=== PATIENT | male | born 1975 | race African-American/Black ===

== ENCOUNTER → 2016-11-02 | Outpatient (CLI) | payer OTHER ==
[~2016-11-02] MED LIST: GASTROGRAFIN SOLUTION 30ML (Q9963) As Ordered ONE; ISOVUE-370 76% 100ML VIAL (Q9967) As Ordered ONE
--- NOTE | 2016-11-03 04:25 | REP ---
Clinical: Abdominal pain. Technique: Axial contrast enhanced images from the lung bases to the pubic symphysis using oral and 100 ml Isovue 370 intravenous contrast material with precontrast images of the abdomen as well as coronal and sagittal re-formations. Findings: Lung bases are relatively clear. Visualized portions of the heart and pericardium are normal. Liver, spleen, pancreas, gallbladder, bilateral adrenal glands and kidneys are essentially normal. Incidental note is made of a 1 mm nonobstructing left intrarenal calculus as well as small left renal hypodensity suggesting cysts measuring up to 1.1 cm diameter. The enteric system is without obstruction or acute inflammatory process and a normal terminal ileum and appendix are identified in the right lower quadrant. Scattered colonic and sigmoid diverticula noted without acute diverticulitis. Pelvis demonstrates normal bladder and age appropriate prostate/seminal vesicles. No pelvic fluid or ascites. No intraperitoneal or retroperitoneal adenopathy. No free air. Abdominal aorta without aneurysm or dissection. Musculoskeletal structures are intact and without focal osseous abnormality. Impression: 1. A 1 mm nonobstructing left intrarenal calculus and small presumed left renal cyst 1.1 cm maximal diameter. 2. Colonic diverticula without acute diverticulitis. 3. No further acute intra-abdominal or pelvic pathology appreciated. Signed by Aleksandar Reynoso MD 11/03/2016 04:17 A
== END | disposition home or self-care (01) ==
LOC: M RAD 14:59
PROVIDERS: ATTEND Physician Assistant
DX: R14.2 Eructation (principal); R10.11 Right upper quadrant pain; N20.0 Calculus of kidney; N28.1 Cyst of kidney, acquired; K57.90 Diverticulosis of intestine, part unspecified, without perforation or abscess without bleeding
CPT/HCPCS: 74178; Q9963; Q9967

== ENCOUNTER → 2017-05-29 | Outpatient (CLI) | payer OTHER ==
[~2017-05-29] MED LIST changes: +ALLO15TA; +AMLO5TAB2; +ATOR1TAB21; +BOTO200I; +CLAR10CA3 PO; +DYAZ37.5 PO; -GASTROGRAFIN SOLUTION 30ML (Q9963) As Ordered ONE; +HYOS125TA; +IBUP80TA PO; -ISOVUE-370 76% 100ML VIAL (Q9967) As Ordered ONE; +OMEP20CA3; +ONDA4TAB6; +PERC5TAB12 PO; +RANI150T; +REFR0.1D; +REST0.05; +SUMA100T2; +TESS100C PO; +TIZANIDINE; +TRIAMT/HCTZ; +ZONI100C2
[2017-05-29 11:21] LABS: BASO % 0.6 % (0.0-1.0); EOS % 1.3 % (0.0-3.0); LARGE UNSTAINED CELL # 0.1 K/mm3 (0.0-0.4); LARGE UNSTAINED CELL % 2.4 % (0.0-4.0); LYMPH # 1.3 K/mm3 (1.5-4.5); LYMPH % 31.6 % (24.0-44.0); MEAN CORPUSCULAR HEMOGLOBIN 27.4 pg (27.0-33.0); MEAN CORPUSCULAR HGB CONC 34.3 g/dl (32.0-36.5); MEAN CORPUSCULAR VOLUME 80.1 fl (80.0-96.0); MONO # 0.2 K/mm3 (0.0-0.8); MONO % 5.9 % (0.0-5.0); NEUTROPHILS # 2.3 K/mm3 (1.8-7.7); NEUTROPHILS % 58.2 % (36.0-66.0); PLATELET COUNT, AUTOMATED 258 k/mm3 (150-450); RED CELL DISTRIBUTION WIDTH 13.9 % (11.5-14.5)
[2017-05-29 11:52] LABS: ALBUMIN 4.1 GM/DL (3.2-5.2); ALBUMIN/GLOBULIN RATIO 1.37 (1.00-1.93); ALKALINE PHOSPHATASE 52 U/L (45-117); ALT/SGPT 115 U/L (12-78); ANION GAP 6 MEQ/L (8-16); AST/SGOT 84 U/L (15-37); BILIRUBIN,TOTAL 0.6 MG/DL (0.2-1.0); BLOOD UREA NITROGEN 13 MG/DL (7-18); CALCIUM LEVEL 8.9 MG/DL (8.5-10.1); CARBON DIOXIDE LEVEL 30 MEQ/L (21-32); CHLORIDE LEVEL 107 MEQ/L (98-107); CHOLESTEROL LEVEL 222 MG/DL (<200); CREATININE FOR GFR 1.13 MG/DL (0.70-1.30); GLOMERULAR FILTRATION RATE > 60.0 (>60); GLUCOSE, FASTING 93 MG/DL (70-105); POTASSIUM SERUM 4.1 MEQ/L (3.5-5.1); SODIUM LEVEL 143 MEQ/L (136-145); TOTAL PROTEIN 7.1 GM/DL (6.4-8.2); TRIGLYCERIDES LEVEL 123 MG/DL (<150); URIC ACID 4.9 MG/DL (3.5-7.2)
== END ==
LOC: M LAB 10:06
PROVIDERS: ATTEND Emergency Medicine
DX: I10 Essential (primary) hypertension (principal); E78.2 Mixed hyperlipidemia; E55.9 Vitamin D deficiency, unspecified; M10.9 Gout, unspecified; R53.83 Other fatigue

== ENCOUNTER 2017-07-01 17:24 | Emergency (ER) | payer OTHER ==
[~2017-07-01] VITALS: Ht 175.3 cm; Wt 127.3 kg
[2017-07-01] MEDS ORDERED: ONDA4TAB6 (18:03)
[2017-07-01] MEDS ORDERED: HYOS125TA (18:03)
[2017-07-01] MEDS ORDERED: REFR0.1D (18:03)
[2017-07-01] MEDS ORDERED: ZONI100C2 (18:03)
[2017-07-01] MEDS ORDERED: TIZANIDINE (18:03)
[2017-07-01] MEDS ORDERED: DYAZ37.5 PO (18:03)
[2017-07-01] MEDS ORDERED: REST0.05 (18:03)
[2017-07-01] MEDS ORDERED: AMLO5TAB2 (18:03)
[2017-07-01] MEDS ORDERED: ALLO15TA (18:03)
[2017-07-01] MEDS ORDERED: CLAR10CA3 PO (18:03)
[2017-07-01] MEDS ORDERED: SUMA100T2 (18:03)
[2017-07-01] MEDS ORDERED: TRIAMT/HCTZ (18:03)
[2017-07-01] MEDS ORDERED: RANI150T (18:03)
[2017-07-01] MEDS ORDERED: ATOR1TAB21 (18:03)
[2017-07-01] MEDS ORDERED: BOTO200I (18:03)
[2017-07-01] MEDS ORDERED: OMEP20CA3 (18:03)
[2017-07-01] MEDS ORDERED: MORPHINE 2 MG/ML 1ML SYRINGE IV ONE (20:15)
[2017-07-01 20:42] LABS: BASO % 0.5 % (0.0-1.0); EOS # 0.2 K/mm3 (0.0-0.50); EOS % 2.3 % (0.0-3.0); LARGE UNSTAINED CELL # 0.2 K/mm3 (0.0-0.4); LARGE UNSTAINED CELL % 2.4 % (0.0-4.0); LYMPH # 1.5 K/mm3 (1.5-4.5); LYMPH % 21.7 % (24.0-44.0); MEAN CORPUSCULAR HEMOGLOBIN 27.3 pg (27.0-33.0); MEAN CORPUSCULAR HGB CONC 34.4 g/dl (32.0-36.5); MEAN CORPUSCULAR VOLUME 79.5 fl (80.0-96.0); MONO # 0.3 K/mm3 (0.0-0.8); MONO % 4.7 % (0.0-5.0); NEUTROPHILS # 4.7 K/mm3 (1.8-7.7); NEUTROPHILS % 68.4 % (36.0-66.0); PLATELET COUNT, AUTOMATED 246 k/mm3 (150-450); WHITE BLOOD COUNT 6.8 K/mm3 (4.0-10.0)
[2017-07-01 21:02] LABS: ALBUMIN 4.1 GM/DL (3.2-5.2); ALBUMIN/GLOBULIN RATIO 1.28 (1.00-1.93); ALKALINE PHOSPHATASE 66 U/L (45-117); ALT/SGPT 114 U/L (12-78); ANION GAP 8 MEQ/L (8-16); AST/SGOT 72 U/L (15-37); BILIRUBIN,DIRECT < 0.1 MG/DL (0.0-0.2); BILIRUBIN,TOTAL 0.4 MG/DL (0.2-1.0); BLOOD UREA NITROGEN 11 MG/DL (7-18); CALCIUM LEVEL 8.9 MG/DL (8.5-10.1); CARBON DIOXIDE LEVEL 29 MEQ/L (21-32); CHLORIDE LEVEL 106 MEQ/L (98-107); CREATININE FOR GFR 1.16 MG/DL (0.70-1.30); GLOMERULAR FILTRATION RATE > 60.0 (>60); GLUCOSE, FASTING 87 MG/DL (70-105); SODIUM LEVEL 143 MEQ/L (136-145); TOTAL PROTEIN 7.3 GM/DL (6.4-8.2)
--- NOTE | 2017-07-01 21:30 | REPUSA ---
Clinical history: Right upper quadrant pain. Findings: The pancreas is limited in visualization secondary to overlying bowel gas, but appears mery sly unremarkable. The liver demonstrates increased echotexture and echogenicity, with no mass lesions . The gallbladder is unremarkable. The common bile duct measures 4 mm and is within normal limits. Th e right kidney measures 12.1 centimeters in length and is unremarkable. There is no ascites. Impression: Fatty infiltration of the liver. No other acute findings.
[2017-07-01] MEDS ORDERED: BENZONATATE 100 MG CAP PO ONE (22:00)
[2017-07-01] MEDS ORDERED: IBUPROFEN 800 MG TAB PO ONE (22:00)
[2017-07-01] MEDS ORDERED: PERCOCET 5MG/325MG TAB PO ONE (22:00)
[2017-07-01] MEDS ORDERED: TESS100C PO (22:03)
[2017-07-01] MEDS ORDERED: IBUP80TA PO (22:03)
[2017-07-01] MEDS ORDERED: PERC5TAB12 PO (22:03)
[2017-07-01 22:18] VITALS: BP 136/70
== END 2017-07-01 22:17 | disposition home or self-care (01) ==
LOC: M ED 17:24
DX: M94.0 Chondrocostal junction syndrome [Tietze] (principal); R10.9 Unspecified abdominal pain; R05 Cough; I10 Essential (primary) hypertension; Z79.899 Other long term (current) drug therapy

== ENCOUNTER → 2017-09-24 | Outpatient (REF) | payer OTHER | LOC: M SFHCLERA 10:04 | PROVIDERS: ATTEND Nurse Practitioner Family | DX: J02.9 Acute pharyngitis, unspecified (principal) ==

== ENCOUNTER → 2018-03-31 | Outpatient (CLI) | payer OTHER ==
[2018-03-31 11:34] LABS: ESTIMATED AVERAGE GLUCOSE 131 MG/DL (60-110); HEMOGLOBIN A1c 6.2 %
[2018-03-31 11:47] LABS: ALBUMIN 4.4 GM/DL (3.2-5.2); ALBUMIN/GLOBULIN RATIO 1.29 (1.00-1.93); ALKALINE PHOSPHATASE 63 U/L (45-117); ALT/SGPT 90 U/L (12-78); ANION GAP 8 MEQ/L (8-16); AST/SGOT 78 U/L (7-37); BILIRUBIN,TOTAL 0.8 MG/DL (0.2-1.0); BLOOD UREA NITROGEN 14 MG/DL (7-18); CALCIUM LEVEL 9.1 MG/DL (8.5-10.1); CARBON DIOXIDE LEVEL 29 MEQ/L (21-32); CHLORIDE LEVEL 107 MEQ/L (98-107); CREATININE FOR GFR 1.15 MG/DL (0.70-1.30); GLOMERULAR FILTRATION RATE > 60.0 (>60); GLUCOSE, FASTING 88 MG/DL (70-100); LIPASE 316 U/L (73-393); MAGNESIUM LEVEL 2.2 MG/DL (1.8-2.4); PSA SCREENING 0.88 NG/ML (< 4.0); SODIUM LEVEL 144 MEQ/L (136-145); THYROID STIMULATING HORMONE 0.308 uIU/ML (0.358-3.740); TOTAL PROTEIN 7.8 GM/DL (6.4-8.2); URIC ACID 5.5 MG/DL (3.5-7.2)
[2018-03-31 12:05] LABS: TOTAL 25(OH) VITAMIN D 64.4 NG/ML (30.0-100.0); VITAMIN B12 LEVEL 598 PG/ML
[2018-03-31 14:48] LABS: BASO % 0.3 % (0.0-1.0); EOS # 0.1 10^3/uL (0.0-0.50); EOS % 1.7 % (0.0-3.0); HEMATOCRIT 50.1 % (42.0-52.0); HEMOGLOBIN 16.7 g/dl (13.5-17.5); LYMPH # 1.1 10^3/uL (1.5-4.5); MEAN CORPUSCULAR HGB CONC 33.3 g/dl (32.0-36.5); MONO # 0.2 10^3/uL (0.0-0.8); MONO % 6.5 % (0.0-5.0); NEUTROPHILS # 2.1 10^3/uL (1.8-7.7); NEUTROPHILS % 59.5 % (36.0-66.0); PLATELET COUNT, AUTOMATED 230 10^3/uL (150-450); RED BLOOD COUNT 6.42 10^6/uL (4.30-6.10); RED CELL DISTRIBUTION WIDTH 14.6 % (11.5-14.5); WHITE BLOOD COUNT 3.5 10^3/uL (4.0-10.0)
== END ==
LOC: M LAB 09:55
DX: R20.2 Paresthesia of skin (principal)
CPT/HCPCS: 72110

== ENCOUNTER → 2018-07-15 | Outpatient (CLI) | payer OTHER ==
[2018-07-15 09:28] LABS: THYROID STIMULATING HORMONE 0.513 uIU/ML (0.358-3.740)
[2018-07-17 11:22] LABS: THYROID PEROXIDASE ANTIBODY < 28.0 U/ML (<60.0)
[2018-07-18 00:06] LABS: THYROID STIMULATING IMMUNOGLOB <0.10 IU/L (0.00-0.55)
== END ==
LOC: M LAB 07:32
DX: E05.90 Thyrotoxicosis, unspecified without thyrotoxic crisis or storm (principal)
CPT/HCPCS: 84443

== ENCOUNTER → 2018-11-07 | Outpatient (REF) | payer OTHER ==
[~2018-11-07] MED LIST changes: -AMLO5TAB2; +AMLO5TAB6
[2018-11-07 15:28] LABS: HEMOGLOBIN A1c 6.7 %
[2018-11-07 15:30] LABS: ALBUMIN 4.8 GM/DL (3.2-5.2); ALT/SGPT 88 U/L (12-78); BILIRUBIN,TOTAL 0.8 MG/DL (0.2-1.0); BLOOD UREA NITROGEN 13 MG/DL (7-18); CALCIUM LEVEL 9.4 MG/DL (8.5-10.1); CARBON DIOXIDE LEVEL 27 MEQ/L (21-32); CHLORIDE LEVEL 103 MEQ/L (98-107); CHOLESTEROL LEVEL 185 MG/DL (<200); CHOLESTEROL RISK RATIO 4.404 (<5); GLOMERULAR FILTRATION RATE > 60.0 (>60); GLUCOSE, FASTING 78 MG/DL (70-100); HDL CHOLESTEROL 42 MG/DL (>40); LDL CHOLESTEROL 125 MG/DL (<100); NON-HDL-C 143 MG/DL; POTASSIUM SERUM 4.4 MEQ/L (3.5-5.1); SODIUM LEVEL 138 MEQ/L (136-145); TOTAL PROTEIN 7.9 GM/DL (6.4-8.2); TRIGLYCERIDES LEVEL 89 MG/DL (<150)
== END ==
LOC: M LABNEURO 13:21
PROVIDERS: ATTEND Physician Assistant Medical
DX: I10 Essential (primary) hypertension (principal); R94.5 Abnormal results of liver function studies; E78.2 Mixed hyperlipidemia; R73.01 Impaired fasting glucose

== ENCOUNTER → 2019-05-25 | Outpatient (CLI) | payer OTHER ==
[~2019-05-25] MED LIST changes: -ALLO15TA; +ALLO300T2; -OMEP20CA3; +OMEP20CA4
[2019-05-25 20:27] LABS: ALBUMIN 4.2 GM/DL (3.2-5.2); ALT/SGPT 92 U/L (12-78); BILIRUBIN,TOTAL 0.6 MG/DL (0.2-1.0); BLOOD UREA NITROGEN 14 MG/DL (7-18); CALCIUM LEVEL 9.8 MG/DL (8.5-10.1); CARBON DIOXIDE LEVEL 29 MEQ/L (21-32); CHLORIDE LEVEL 105 MEQ/L (98-107); CHOLESTEROL LEVEL 193 MG/DL (<200); CHOLESTEROL RISK RATIO 3.509 (<5); CREATININE FOR GFR 1.17 MG/DL (0.70-1.30); GLOMERULAR FILTRATION RATE > 60.0 (>60); GLUCOSE, FASTING 86 MG/DL (70-100); HDL CHOLESTEROL 55 MG/DL (>40); LDL CHOLESTEROL 119 MG/DL (<100); NON-HDL-C 138 MG/DL; POTASSIUM SERUM 4.4 MEQ/L (3.5-5.1); SODIUM LEVEL 142 MEQ/L (136-145); TOTAL PROTEIN 7.5 GM/DL (6.4-8.2); TRIGLYCERIDES LEVEL 94 MG/DL (<150)
== END ==
LOC: M WUC 16:39
PROVIDERS: ATTEND Physician Assistant
DX: E78.2 Mixed hyperlipidemia (principal)

== ENCOUNTER → 2020-03-27 | Outpatient (REF) | payer OTHER ==
[~2020-03-27] MED LIST changes: +OMEP1CAP73; -OMEP20CA4; +ZONI100C17; -ZONI100C2
[2020-03-27 17:38] LABS: HEMOGLOBIN A1c 7.1 %
[2020-03-27 17:47] LABS: ALBUMIN 4.7 GM/DL (3.2-5.2); ALT/SGPT 80 U/L (12-78); BILIRUBIN,TOTAL 0.8 MG/DL (0.2-1.0); BLOOD UREA NITROGEN 12 MG/DL (7-18); CALCIUM LEVEL 9.7 MG/DL (8.5-10.1); CARBON DIOXIDE LEVEL 28 MEQ/L (21-32); CHLORIDE LEVEL 102 MEQ/L (98-107); CHOLESTEROL LEVEL 203 MG/DL (<200); CREATININE FOR GFR 1.07 MG/DL (0.70-1.30); GLOMERULAR FILTRATION RATE > 60.0 (>60); GLUCOSE, FASTING 97 MG/DL (70-100); HDL CHOLESTEROL 51 MG/DL (>40); LDL CHOLESTEROL 129 MG/DL (<100); NON-HDL-C 152 MG/DL; POTASSIUM SERUM 4.1 MEQ/L (3.5-5.1); SODIUM LEVEL 136 MEQ/L (136-145); TOTAL PROTEIN 7.8 GM/DL (6.4-8.2); TRIGLYCERIDES LEVEL 114 MG/DL (<150); URIC ACID 5.5 MG/DL (3.5-7.2)
== END ==
LOC: M LABDRWAD 16:08
PROVIDERS: ATTEND Physician Assistant
DX: E78.2 Mixed hyperlipidemia (principal); E55.9 Vitamin D deficiency, unspecified; M10.9 Gout, unspecified; E11.9 Type 2 diabetes mellitus without complications

== ENCOUNTER → 2020-08-22 | Outpatient (CLI) | payer OTHER ==
[~2020-08-22] MED LIST changes: +AMLO1TAB24; -AMLO5TAB6
--- NOTE | 2020-08-22 09:49 | REP ---
INDICATION: CALCULUS OF KIDNEY. Cyst of kidney, acquired. COMPARISON: Comparison CT study abdomen pelvis November 02, 2016.. TECHNIQUE: Urinary tract sonography. FINDINGS: Scanning at the level of the urinary bladder shows no abnormality. Renal cortical echogenicity pattern is normal bilaterally and contours are smooth. There is no evidence of hydronephrosis, cyst, mass, or calculus in either kidney. The right kidney measures 12.6 x 5.0 x 6.7 cm. Left renal dimensions are 12.7 x 4.5 x 6.2 cm. There is a 1.0 x 0.6 x 0.9 cm cyst at the lower pole the right kidney. IMPRESSION: Small benign cyst lower pole right kidney. Otherwise negative urinary tract sonography.. <Electronically signed by Nitin Polk > 08/22/20 [id number]
== END ==
LOC: M RAD 07:06
PROVIDERS: ATTEND Internal Medicine Nephrology
DX: N28.1 Cyst of kidney, acquired (principal)

== ENCOUNTER → 2020-12-05 | Outpatient (CLI) | payer OTHER ==
--- NOTE | 2020-12-05 08:21 | REP ---
INDICATION: ABN LIVER FUNCTION. Right upper quadrant pain. COMPARISON: Comparison CT study 02 November 2016. Comparison sonography 01 July 2017.. TECHNIQUE: Right upper quadrant sonography. FINDINGS: Scanning through the right upper quadrant of the abdomen demonstrates a normal sized and walled gallbladder without evidence of stone or polyp. Common bile duct is normal measuring 0.5 cm in greatest diameter. Liver is at the upper range of normal in size. Some increased echogenicity diffusely, suspect fatty infiltration. No focal liver lesion is seen. Limited views of the pancreas show no abnormality. There is no evidence of ascites or right renal abnormality. The right kidney measures 13.9 x 7.3 x 7.5 cm. IMPRESSION: Suspect some degree of fatty infiltration of the liver. Otherwise negative right upper quadrant sonography. <Electronically signed by Nitin Polk > 12/05/20 [id number]
== END ==
LOC: M RAD 06:45
PROVIDERS: ATTEND Physician Assistant
DX: R94.5 Abnormal results of liver function studies (principal)

== ENCOUNTER 2021-05-10 12:42 | Emergency (ER) | payer OTHER ==
[~2021-05-10] VITALS: Ht 175.3 cm; Wt 128.5 kg
[2021-05-10] MEDS ORDERED: NS 1,000 ML IV ONE (16:15)
[2021-05-10 16:48] LABS: BASO % 0.4 % (0.0-1.0); EOS % 0.6 % (0.0-3.0); HEMATOCRIT 44.3 % (42.0-52.0); HEMOGLOBIN 14.8 g/dl (13.5-17.5); LYMPH # 1.7 10^3/uL (1.5-5.0); LYMPH % 34.8 % (24.0-44.0); MEAN CORPUSCULAR HEMOGLOBIN 26.2 pg (27.0-33.0); MEAN CORPUSCULAR HGB CONC 33.4 g/dl (32.0-36.5); MEAN CORPUSCULAR VOLUME 78.4 fl (80.0-96.0); MONO # 0.3 10^3/uL (0.0-0.8); MONO % 6.6 % (2.0-8.0); NEUTROPHILS # 2.8 10^3/uL (1.5-8.5); NEUTROPHILS % 57.4 % (36.0-66.0); PLATELET COUNT, AUTOMATED 239 10^3/uL (150-450); RED BLOOD COUNT 5.65 10^6/uL (4.30-6.10); WHITE BLOOD COUNT 4.9 10^3/uL (4.0-10.0)
[2021-05-10 17:24] LABS: ACETONE/KETONE 10.16 MG/DL (<2.81); ALBUMIN 4.3 GM/DL (3.2-5.2); ALT/SGPT 67 U/L (12-78); BILIRUBIN,DIRECT 0.2 MG/DL (0.0-0.2); BILIRUBIN,TOTAL 0.8 MG/DL (0.2-1.0); BLOOD UREA NITROGEN 14 MG/DL (7-18); CALCIUM LEVEL 9.2 MG/DL (8.5-10.1); CARBON DIOXIDE LEVEL 29 MEQ/L (21-32); CHLORIDE LEVEL 102 MEQ/L (98-107); CREATININE FOR GFR 0.99 MG/DL (0.70-1.30); GLOMERULAR FILTRATION RATE > 60.0 (>60); GLUCOSE, FASTING 242 MG/DL (70-100); LIPASE 250 U/L (73-393); POTASSIUM SERUM 4.2 MEQ/L (3.5-5.1); SODIUM LEVEL 137 MEQ/L (136-145); TOTAL PROTEIN 7.3 GM/DL (6.4-8.2)
[2021-05-10 17:58] LABS: HEMOGLOBIN A1c 11.8 %
[2021-05-10] MEDS ORDERED: HumuLIN R (REGULAR) INSULIN (NovoLIN R) **100U/ML** PER UNIT IV ONE (18:30)
[2021-05-10] MEDS ORDERED: METF500T13 PO (19:10)
[2021-05-10] MEDS ORDERED: metFORMIN (GLUCOPHAGE) 500MG TAB PO ONE (19:10)
[2021-05-10 19:26] VITALS: BP 146/92
== END 2021-05-10 19:28 | disposition home or self-care (01) ==
LOC: M ED 17:49
DX: E11.9 Type 2 diabetes mellitus without complications (principal); E86.0 Dehydration; G43.909 Migraine, unspecified, not intractable, without status migrainosus; E78.00 Pure hypercholesterolemia, unspecified; I10 Essential (primary) hypertension; G47.30 Sleep apnea, unspecified; K21.9 Gastro-esophageal reflux disease without esophagitis; M10.9 Gout, unspecified; F41.9 Anxiety disorder, unspecified; Z79.899 Other long term (current) drug therapy

== ENCOUNTER → 2021-08-27 | Outpatient (REF) | payer OTHER ==
[~2021-08-27] MED LIST changes: +METF500T13 PO
== END ==
LOC: M LAB REF 16:46
PROVIDERS: ATTEND Internal Medicine Nephrology
DX: I12.9 Hypertensive chronic kidney disease with stage 1 through stage 4 chronic kidney disease, or unspecified chronic kidney disease (principal)

== ENCOUNTER → 2021-10-01 | Outpatient (CLI) | payer OTHER ==
[2021-10-01 16:21] LABS: BASO % 0.6 % (0.0-1.0); EOS # 0.1 10^3/uL (0.0-0.5); EOS % 1.2 % (0.0-3.0); HEMATOCRIT 42.5 % (42.0-52.0); HEMOGLOBIN 14.4 g/dl (13.5-17.5); LYMPH # 1.8 10^3/uL (1.5-5.0); MEAN CORPUSCULAR HGB CONC 33.9 g/dl (32.0-36.5); MEAN CORPUSCULAR VOLUME 76.7 fl (80.0-96.0); MONO # 0.4 10^3/uL (0.0-0.8); MONO % 7.1 % (2.0-8.0); NEUTROPHILS # 2.8 10^3/uL (1.5-8.5); NEUTROPHILS % 55.9 % (36.0-66.0); PLATELET COUNT, AUTOMATED 269 10^3/uL (150-450); RED BLOOD COUNT 5.54 10^6/uL (4.30-6.10); WHITE BLOOD COUNT 5.1 10^3/uL (4.0-10.0)
[2021-10-01 16:35] LABS: HEMOGLOBIN A1c 9.7 %
[2021-10-01 16:52] LABS: ALBUMIN 4.4 GM/DL (3.2-5.2); ALT/SGPT 82 U/L (12-78); BILIRUBIN,TOTAL 0.6 MG/DL (0.2-1.0); BLOOD UREA NITROGEN 10 MG/DL (7-18); CALCIUM LEVEL 9.7 MG/DL (8.5-10.1); CARBON DIOXIDE LEVEL 30 MEQ/L (21-32); CHLORIDE LEVEL 102 MEQ/L (98-107); CHOLESTEROL LEVEL 213 MG/DL (<200); CHOLESTEROL RISK RATIO 3.803 (<5); CREATININE FOR GFR 0.92 MG/DL (0.70-1.30); GLOMERULAR FILTRATION RATE > 60.0 (>60); GLUCOSE, FASTING 165 MG/DL (70-100); HDL CHOLESTEROL 56 MG/DL (>40); LDL CHOLESTEROL 130 MG/DL (<100); NON-HDL-C 157 MG/DL; SODIUM LEVEL 138 MEQ/L (136-145); TOTAL PROTEIN 7.5 GM/DL (6.4-8.2); TRIGLYCERIDES LEVEL 137 MG/DL (<150)
== END ==
LOC: M WUC 13:02
PROVIDERS: ATTEND Family Medicine
DX: E11.65 Type 2 diabetes mellitus with hyperglycemia (principal)

== ENCOUNTER → 2021-10-06 | Outpatient (CLI) | payer OTHER ==
[2021-10-06 12:15] LABS: CREATININE, URINE 57.5 MG/DL; MAU/CREAT RATIO 229.5 MCG/MG (0.0-30.0)
== END ==
LOC: M WUC 10:06
PROVIDERS: ATTEND Family Medicine
DX: E11.65 Type 2 diabetes mellitus with hyperglycemia (principal)

== ENCOUNTER → 2021-12-29 | Outpatient (CLI) | payer OTHER ==
[2021-12-29 20:23] LABS: HEPATITIS B SURFACE ANTIBODY NEGATIVE (POSITIVE); HEPATITIS C VIRUS ABY INDEX 0.2 INDEX (<0.8); HIV 1&2 SCREEN CENTAUR NEGATIVE (NEGATIVE)
== END ==
LOC: M LAB 18:26
PROVIDERS: ATTEND Psychiatry & Neurology Neurology
DX: Z77.21 Contact with and (suspected) exposure to potentially hazardous body fluids (principal); W46.0XXA Contact with hypodermic needle, initial encounter; Y92.89 Other specified places as the place of occurrence of the external cause; Y93.89 Activity, other specified; Y99.8 Other external cause status

== ENCOUNTER → 2022-10-14 | Outpatient (CLI) | payer OTHER ==
[~2022-10-14] MED LIST changes: -ZONI100C17; +ZONI100C67
== END ==
LOC: M LAB 16:12
PROVIDERS: ATTEND Nurse Practitioner Family
DX: E11.65 Type 2 diabetes mellitus with hyperglycemia (principal)

== ENCOUNTER → 2022-12-17 | Outpatient (CLI) | payer OTHER ==
[2022-12-17 14:11] LABS: ALBUMIN 4.4 G/DL (3.2-5.2); ALKALINE PHOSPHATASE 72 U/L (46-116); ALT/SGPT 59 U/L (7.0-40); AST/SGOT 39 U/L (<34); BILIRUBIN,DIRECT 0.2 MG/DL (<0.4); BILIRUBIN,TOTAL 0.8 MG/DL (0.3-1.2); BLOOD UREA NITROGEN 14 MG/DL (9-23); CALCIUM LEVEL 9.7 MG/DL (8.5-10.1); CARBON DIOXIDE LEVEL 31 MMOL/L (20-31); CHLORIDE LEVEL 101 MMOL/L (98-107); CREATININE FOR GFR 0.93 MG/DL (0.70-1.30); GLOMERULAR FILTRATION RATE > 60.0 (>60); GLUCOSE, FASTING 173 MG/DL (60-100); PHOSPHORUS LEVEL 4.1 MG/DL (2.5-4.9); POTASSIUM SERUM 3.9 MMOL/L (3.5-5.1); SODIUM LEVEL 141 MMOL/L (136-145)
== END ==
LOC: M PLALAB 09:38
PROVIDERS: ATTEND Podiatrist Foot & Ankle Surgery
DX: B35.1 Tinea unguium (principal)

== ENCOUNTER → 2023-03-10 | Outpatient (REF) | payer OTHER ==
[2023-03-10 16:54] LABS: HEMOGLOBIN A1c 8.7 % (4.0-6.0)
[2023-03-10 17:06] LABS: CREATININE, URINE 54.5 MG/DL; MAU/CREAT RATIO 229.3 MCG/MG (0.0-30.0)
[2023-03-10 17:07] LABS: URIC ACID 4.7 MG/DL (3.7-9.2)
[2023-03-10 17:10] LABS: ALBUMIN 4.7 G/DL (3.2-5.2); ALKALINE PHOSPHATASE 73 U/L (46-116); ALT/SGPT 60 U/L (7.0-40); AST/SGOT 44 U/L (<34); BILIRUBIN,TOTAL 0.7 MG/DL (0.3-1.2); BLOOD UREA NITROGEN 13 MG/DL (9-23); CALCIUM LEVEL 9.1 MG/DL (8.5-10.1); CARBON DIOXIDE LEVEL 28 MMOL/L (20-31); CHLORIDE LEVEL 103 MMOL/L (98-107); CHOLESTEROL LEVEL 220 MG/DL (<200); CHOLESTEROL RISK RATIO 4.02 (<5); CREATININE FOR GFR 0.89 MG/DL (0.70-1.30); GLOMERULAR FILTRATION RATE > 60.0 (>60); GLUCOSE, FASTING 134 MG/DL (60-100); HDL CHOLESTEROL 54.7 MG/DL (>40); LDL CHOLESTEROL 141.3 MG/DL (<100); NON-HDL-C 165.3 MG/DL; POTASSIUM SERUM 3.8 MMOL/L (3.5-5.1); SODIUM LEVEL 141 MMOL/L (136-145); TOTAL 25(OH) VITAMIN D 31.8 NG/ML (20.0-100.0); TOTAL PROTEIN 7.2 G/DL (5.7-8.2); TRIGLYCERIDES LEVEL 120 MG/DL (<150)
== END ==
LOC: M LABWUC 16:09
PROVIDERS: ATTEND Nurse Practitioner Family
DX: M10.9 Gout, unspecified (principal); E55.9 Vitamin D deficiency, unspecified; E78.2 Mixed hyperlipidemia; E11.65 Type 2 diabetes mellitus with hyperglycemia; I10 Essential (primary) hypertension

== ENCOUNTER → 2023-08-11 | Outpatient (REF) | payer OTHER ==
[2023-08-11 17:21] LABS: HEMOGLOBIN A1c 9.2 % (4.0-6.0)
== END ==
LOC: M LABWUC 16:23
PROVIDERS: ATTEND Nurse Practitioner Family
DX: E11.65 Type 2 diabetes mellitus with hyperglycemia (principal)

== ENCOUNTER → 2023-11-22 | Outpatient (CLI) | payer OTHER ==
[2023-11-22 14:57] LABS: HEMOGLOBIN A1c 8.4 % (4.0-6.0)
== END ==
LOC: M WUC 12:53
PROVIDERS: ATTEND Nurse Practitioner Family
DX: E11.65 Type 2 diabetes mellitus with hyperglycemia (principal)

== ENCOUNTER → 2024-03-09 | Outpatient (REF) | payer OTHER ==
[~2024-03-09] MED LIST changes: +ONDA-282; -ONDA4TAB6
[2024-03-09 14:30] LABS: HEMOGLOBIN A1c 9.4 % (4.0-6.0)
== END ==
LOC: M LABWUC 13:00
PROVIDERS: ATTEND Nurse Practitioner Family
DX: E11.65 Type 2 diabetes mellitus with hyperglycemia (principal)

== ENCOUNTER → 2024-06-14 | Outpatient (CLI) | payer OTHER ==
[2024-06-14 18:52] LABS: URIC ACID 4.4 MG/DL (3.7-9.2)
[2024-06-14 18:55] LABS: ALBUMIN 4.5 G/DL (3.2-5.2); ALKALINE PHOSPHATASE 68 U/L (46-116); ALT/SGPT 49 U/L (7.0-40); AST/SGOT 27 U/L (<34); BILIRUBIN,TOTAL 0.6 MG/DL (0.3-1.2); BLOOD UREA NITROGEN 11 MG/DL (9-23); CALCIUM LEVEL 9.8 MG/DL (8.5-10.1); CARBON DIOXIDE LEVEL 32 MMOL/L (20-31); CHLORIDE LEVEL 103 MMOL/L (98-107); CHOLESTEROL LEVEL 183 MG/DL (<200); CHOLESTEROL RISK RATIO 4.51 (<5); CREATININE FOR GFR 1.06 MG/DL (0.70-1.30); GLOMERULAR FILTRATION RATE > 60.0 (>60); GLUCOSE, FASTING 84 MG/DL (60-100); HDL CHOLESTEROL 40.5 MG/DL (>40); LDL CHOLESTEROL 111.1 MG/DL (<100); NON-HDL-C 142.5 MG/DL; POTASSIUM SERUM 4.2 MMOL/L (3.5-5.1); SODIUM LEVEL 140 MMOL/L (136-145); TOTAL PROTEIN 7.2 G/DL (5.7-8.2); TRIGLYCERIDES LEVEL 157 MG/DL (<150)
[2024-06-14 18:57] LABS: TOTAL 25(OH) VITAMIN D 37.2 NG/ML (20.0-100.0)
[2024-06-14 19:05] LABS: HEMOGLOBIN A1c 7.2 % (4.0-6.0)
== END ==
LOC: M PLALAB 16:01
PROVIDERS: ATTEND Nurse Practitioner Family
DX: I10 Essential (primary) hypertension (principal); E11.65 Type 2 diabetes mellitus with hyperglycemia; E78.2 Mixed hyperlipidemia; E55.9 Vitamin D deficiency, unspecified; M10.9 Gout, unspecified

== ENCOUNTER → 2024-09-20 | Outpatient (REF) | payer OTHER ==
[2024-09-20 16:51] LABS: HEMOGLOBIN A1c 6.4 % (4.0-6.0)
== END ==
LOC: M LAB REF 15:59
PROVIDERS: ATTEND Nurse Practitioner Family
DX: E11.65 Type 2 diabetes mellitus with hyperglycemia (principal)

== ENCOUNTER → 2025-10-07 | Outpatient (CLI) | payer OTHER ==
[2025-10-07 10:58] LABS: ESTIMATED AVERAGE GLUCOSE 111.0 MG/DL (60-110)
[2025-10-07 11:17] LABS: CREATININE, URINE 55.7 MG/DL; MALB URINE SIEMENS 5.0 MG/L; MAU/CREAT RATIO 8.9 MCG/MG (0.0-30.0)
[2025-10-07 11:17] LABS: ALT/SGPT 72 U/L (7.0-40); AST/SGOT 280 U/L (<34); CALCIUM LEVEL 9.6 MG/DL (8.5-10.1); CARBON DIOXIDE LEVEL 30 MMOL/L (20-31); CHLORIDE LEVEL 101 MMOL/L (98-107); CREATININE FOR GFR 1.00 MG/DL (0.70-1.30); GLOMERULAR FILTRATION RATE > 90.0 (>60); POTASSIUM SERUM 3.7 MMOL/L (3.5-5.1); SODIUM LEVEL 141 MMOL/L (136-145)
== END ==
LOC: M LAB 10:14
PROVIDERS: ATTEND Nurse Practitioner Family
DX: E11.65 Type 2 diabetes mellitus with hyperglycemia (principal)